=== PATIENT | male | born 1955 | race Caucasian/White ===

== ENCOUNTER → 2022-08-22 14:01 | Outpatient (CLI) | payer MEDICARE, SELFPAY | PROVIDERS: PCP Nurse Practitioner Family; Visit Provider Nurse Practitioner Family | DX: I50.9 Heart failure, unspecified (principal); R06.02 Shortness of breath; E11.9 Type 2 diabetes mellitus without complications; E78.5 Hyperlipidemia, unspecified | CPT/HCPCS: 93306 ==

== ENCOUNTER → 2022-09-13 06:31 | Outpatient (CLI) | payer MEDICARE, SELFPAY ==
--- NOTE | 2022-09-13 | CA_ITS ---
APPROVED REPORT Exam: Pharmacologic Technologist: Melinda Rodríguez, Ht: 6 ft 3 in Wt: 274 lbs BSA: 2.51 m2 HR: 62 bpm BP: 123/73 mmHg Rhythm: NSR, PVC Medical History Medical History: Hyperlipidemia, Diabetes, Smoking Medications: Spiriva,,,,, Metformin,,,,, Atorvastatin,,,,, SyMBICORT,,,,, TAMSULOSIN,,,,, Albuterol,,,,, Famotidine,,,,, LoraTADINE,,,,, Furosemide,,,,, Allergies: No known drug allergies Cardiac Risk Factors: Hyperlipidemia, Diabetes ,, Smoking Stress Test Details Test: LEXISCAN HR Resting HR: 62 bpm Max Heart Rate (APMHR): 152 bpm Max HR Achieved: 93 bpm Target HR (85% APMHR): 129 bpm % of APMHR: 61 Recovery HR: 72 bpm BP Resting BP: 123/73 mmHg Max BP: 153/65 mmHg Recovery BP: 128.0/60.0 mmHg ECG Resting ECG: NSR, PVC Stress ECG: No change Arrhythmia: PVCs Recovery ECG: No change Clinical Exercise duration: 04:05 min Highest Stage Achieved: Stress ECG Conclusion SOA NO CP OCC PVC's NO SIGNIFICANT CHANGES UNREMARKABLE LEXISCAN STRESS MYOVIEW IMAGES REPORTED SEPARATELY Test Summary REST 03:47 . . 62 . 123/ 73 . . Stage 1 01:00 . . 77 . . . . Stage 2 01:00 . . 93 . 115/ 65 . . Stage 3 01:00 . . 88 . . . . Stage 4 01:00 . . 84 . 153/ 65 . . Stage 4 01:05 . . 82 . 139/ 75 . Stop exercise at 04:05 RECOVERY 01:00 . . 76 . . . . RECOVERY 02:00 . . 71 . . . . RECOVERY 03:00 . . 76 . 123/ 61 . . RECOVERY 04:00 . . 72 . 128/ 60 . . RECOVERY 04:06 . . 73 . 128/ 60 . . Electronically signed by : Bee Wilder, 09/16/2022 17:54:59
--- NOTE | 2022-09-13 06:44 | NM_ITS ---
APPROVED REPORT Exam: Nuclear Stress Test Indication: HYPERLIPIDEMIA, SOB, EDEMA, D.M., FORMER SMOKER Patient Location: Outpatient Stress Tech: Melinda Rodríguez [facility] Tech:Dayna AyalaDEDE RT (R)(N)(M) Ht: 6 ft 3 in Wt: 275 lbs HR: 62 bpm BP: 123/73 mmHg BSA: 2.51 m2 Rhythm: NSR TID: 1.13 BMI: 34.3 History: HYPERLIPIDEMIA, SOB, EDEMA, D.M., FORMER SMOKER Procedure: Patient received 0.4 mg of intravenous Lexiscan, resting heart rate 62 bpm, resting blood pressure 123/73 mmHg, with Lexiscan maximum heart rate achieved was 93 bpm which is 61 % of the maximum predicted heart rate and blood pressure was 115/65 mmHg. With Lexiscan, patient denied any complaint of chest pain. Cardiac Stress and Resting SPECT Images: Cardiac Stress and Resting SPECT images were obtained using technetium 99m Myoview 31.5 mCi stress and 10.01 mCi at rest. Stress imaging in both resting and stress imaging from supine position demonstrate a large sized, moderate, fixed perfusion defect in the inferior wall. This is no longer visualized with prone stress imaging. Findings are suggestive of diaphragmatic attenuation. Gated imaging demonstrates normal global and regional LV systolic function. LVEF is calculated at 58%. Conclusion: Diaphragmatic attenuation is present. No definite fixed or reversible perfusion defect. Gated imaging demonstrates normal global and regional LV systolic function. LVEF is calculated at 58%. Electronically signed by : Bee Wilder, 09/16/2022 18:00:06
== END ==
PROVIDERS: PCP Nurse Practitioner Family; Visit Provider Nurse Practitioner Family
DX: R06.09 Other forms of dyspnea (principal); R60.9 Edema, unspecified
CPT/HCPCS: 78452; 93017; A9502; J2785